=== PATIENT | female | born 1965 | race Caucasian/White ===

== ENCOUNTER → 2019-05-21 16:15 | Outpatient (CLI) | payer BC, SELFPAY ==
--- NOTE | 2019-05-21 16:19 | XR_ITS ---
PROCEDURE: XR CHEST 2V CLINICAL HISTORY: H/O TOBACCO USE COMPARISON: CXR CHEST(2 VIEWS-NOT PORTABLE) from 04/25/2016 FINDINGS: The cardiomediastinal silhouette and pulmonary vascularity are within normal limits. The lungs are clear without infiltrates, suspicious nodules, or pleural effusions. No acute bony abnormalities. IMPRESSION: No acute findings. Dictated by: Paresh Curtis MD 05/21/2019 16:37 Electronically signed by Paresh Curtis MD in [facility] 05/21/2019 16:37
== END ==
PROVIDERS: PCP Family Medicine; Visit Provider Family Medicine
DX: Z87.891 Personal history of nicotine dependence (principal)
CPT/HCPCS: 71046

== ENCOUNTER → 2019-06-02 16:16 | Outpatient (CLI) | payer BC, SELFPAY ==
--- NOTE | 2019-06-02 16:16 | MM_ITS ---
PROCEDURE: MM DIG SCREENING MAMM BI W/CAD CLINICAL INDICATION: screening xmg There is no personal or family history of breast cancer. There have been previous biopsies on each breast for benign disease. The patient is on Premarin and estrogen. COMPARISON: DMSB DIG MAMM-SCREEN VIOLETA from 03/29/2015 DMSB DIG MAMM-SCREEN VIOLETA W/CAD from 06/14/2016 DMDXUAVR DIG MAMM-DX UNI A/VW-RT W/CAD from 07/05/2016 TECHNIQUE: Standard CC and MLO images and 3D Tomosynthesis was obtained. R2 CAD reviewed. FINDINGS: There is a markedly dense and heterogenic parenchymal pattern primarily upper outer quadrants of each breast. There is a biopsy clip left breast and benign-appearing calcification left breast. There is a small to moderate size mass upper outer quadrant right breast only definitely visualized on the satinder images. The mass measures approximately 1.7 by 1.5 cm. Recommend the patient return for spot compression views and ultrasound for additional evaluation. THERE ARE NO SUSPICIOUS MICROCALCIFICATIONS. IMPRESSION: MARKEDLY DENSE PARENCHYMAL PATTERN WITH POSSIBLE NEW ASYMMETRIC MASS RIGHT BREAST BI-RAD Category: 0 Need Additional Imaging Evaluation FOLLOW-UP: IMM Immediate Follow-up Recommended (A letter has been sent to the patient regarding results of the study.) Dictated by: Dr. Cole Larsen MD 06/03/2019 13:[address] Cole Larsen MD in [place] 06/03/2019 13:31
== END ==
PROVIDERS: PCP Family Medicine; Visit Provider Nurse Practitioner Obstetrics & Gynecology
DX: Z12.31 Encounter for screening mammogram for malignant neoplasm of breast (principal)
CPT/HCPCS: 77063; 77067

== ENCOUNTER → 2019-10-23 08:36 | Outpatient (CLI) | payer BC, SELFPAY ==
--- NOTE | 2019-10-23 | CA_ITS ---
APPROVED REPORT Exam: Exercise Treadmill Technologist: Catherine Chahal, Ht: 5 ft 4 in Wt: 170 lbs BSA: 1.83 m2 HR: 85 bpm BP: 132/81 mmHg Rhythm: SINUS RHYTHM Stress Test Details Test: Dylan HR Resting HR: 88 bpm Max Heart Rate (APMHR): 168 bpm Max HR Achieved: 179 bpm Target HR (85% APMHR): 142 bpm % of APMHR: 106 Recovery HR: 131 bpm BP Resting BP: 132.0/81.0 mmHg Max BP: 171.0/71.0 mmHg Recovery BP: 171.0/71.0 mmHg ECG Resting ECG: SINUS RHYTHM Clinical Exercise duration: 08:15 min Highest Stage Achieved: Exercise capacity: 10.1 METs Stress ECG Conclusion DYLAN PROTOCOL COMPLETED. EXERCISED 08:15. METS = 10.1. MAX BP 171/71. MAX HEART RATE 179 BPM. STOPPED DUE TO SOA. RESOLVED IN RECOVERY. MAX HEART RATE 179 BPM WHICH IS 107% OF PM FOR AGE. MAX BP 171/71. METS 10.1. TEST STOPPED DUE TO SOA. NO CHEST PAIN. SHORTNESS OF AIR AT PEAK EXERCISE. OCCASIONAL PVC. LESS THAN 1.[address] DEPRESSION. GXT ONLY. GOOD EXERCISE CAPACITY. NO CP. OCCASIONAL PVC. APPROPRIATE BP RESPONSE. LESS THAN 1.[address] DEPRESSION.NEGATIVE TEST FOR ISCHEMIA AT A GOOD LEVEL OF EXERCISE. Test Summary RECOVERY 02:00 0.0 0.0 142 . . . . REST . . . . . . . Sitting REST 02:50 0.0 0.0 88 . 132/ 81 . . Stage 1 01:00 10.0 1.7 109 . 127/ 83 . . Stage 1 02:00 10.0 1.7 123 . 127/ 83 . . Stage 1 03:00 10.0 1.7 122 . 142/ 80 . . Stage 2 01:00 12.0 2.5 143 . . . . Stage 2 02:00 12.0 2.5 154 . . . . Stage 2 03:00 12.0 2.5 159 . 152/ 80 . . Stage 3 01:00 14.0 3.4 169 . . . . Stage 3 02:00 14.0 3.4 178 . . . . Stage 3 02:15 14.0 3.4 179 . . . Stop exercise at 08:15 RECOVERY 01:00 0.0 0.0 161 . . . . RECOVERY 02:00 0.0 0.0 142 . . . . RECOVERY 03:00 0.0 0.0 122 . 171/ 71 . . RECOVERY 04:00 0.0 0.0 112 . 158/ 75 . . RECOVERY 05:00 0.0 0.0 112 . 145/ 72 . . RECOVERY 05:43 0.0 0.0 111 . 142/ 72 . . Electronically signed by : Avel Kincaid, 10/23/2019 16:30:58
== END ==
PROVIDERS: PCP Family Medicine; Visit Provider Family Medicine
DX: R10.13 Epigastric pain (principal)
CPT/HCPCS: 93017

== ENCOUNTER → 2020-06-21 17:18 | Outpatient (CLI) | payer BC, SELFPAY ==
--- NOTE | 2020-06-21 17:22 | MM_ITS ---
PROCEDURE: MM DIG SCREENING MAMM BI W/CAD Digital Breast Tomosynthesis Included CLINICAL INDICATION: Screening Routine Mammogram There is no personal or family history of breast cancer. There have been previous biopsies on each breast for benign disease. The patient currently is on Premarin and estrogen. COMPARISON: MG DMSB DIG MAMM-SCREEN VIOLETA W/CAD from 06/14/2016 MG DMDXUAVR DIG MAMM-DX UNI A/VW-RT W/CAD from 07/05/2016 MG MM DIG SCREENING MAMM BI W/CAD from 06/02/2019 TECHNIQUE: Standard CC and MLO images and 3D Tomosynthesis was obtained. R2 CAD reviewed. FINDINGS: Somewhat diffuse fibroglandular densities are seen in both breast primarily upper outer quadrants. There is a biopsy clip left breast. There are few benign-appearing microcalcifications in each breast, there is a mole marker right breast. There is no suspicious lesion in either breast and no suspicious microcalcifications. IMPRESSION: Stable exam with moderate breast density and no suspicious lesions seen BI-RAD Category: 2 Benign Finding(s) FOLLOW-UP: 1YR 1 Year Follow-up (A letter has been sent to the patient regarding results of the study.) Dictated by: Dr. Cole Larsen MD 06/26/2020 19:01 Dr. Cole Larsen MD in [place] 06/26/2020 19:01
== END ==
PROVIDERS: PCP Family Medicine; Visit Provider Nurse Practitioner Obstetrics & Gynecology
DX: Z12.31 Encounter for screening mammogram for malignant neoplasm of breast (principal)
CPT/HCPCS: 77063; 77067

== ENCOUNTER → 2020-08-25 09:17 | Outpatient (CLI) | payer BC, SELFPAY ==
[2020-08-25 09:51] LABS: Basophils % 0.5 % (0.1-2.0); Eosinophils # 0.1 K/mm3 (0.0-0.4); Eosinophils % 1.6 % (0.1-12.0); Hemoglobin 14.1 g/dL (12.2-16.2); Lymphocytes # 3.2 K/mm3 (0.7-4.5); Lymphocytes % 47.1 % (10-50); Mean Corpuscular HGB Conc 32.9 g/dL (31.8-35.4); Mean Corpuscular Volume 91.2 fl (81-99); Mean Platelet Volume 8.1 fl (7.4-10.4); Monocytes # 0.4 K/mm3 (0.1-1.0); Monocytes % 5.3 % (1.7-9.3); Neutrophils # 3.1 K/mm3 (1.8-7.8); Neutrophils % 45.4 % (37.0-80.0); Platelet Count 285 K/mm3 (142-424); Red Blood Count 4.72 M/mm3 (4.20-5.40); Red Cell Distribution Width 13.1 % (11.5-17.5); White Blood Count 6.8 K/mm3 (4.8-10.8)
[2020-08-25 10:18] LABS: Alanine Aminotransferase 20 U/L (12-78); Albumin Level 4.4 g/dl (3.5-5.0); Albumin/Globulin Ratio 1.8 (1.1-1.8); Alkaline Phosphatase 78 U/L (38-126); Anion Gap 8.9 mEq/L (5-15); Aspartate Amino Transferase 31 U/L (14-36); Bilirubin,Total 0.6 mg/dl (0.2-1.3); Blood Urea Nitrogen 16 mg/dl (7-17); Calcium 9.8 mg/dl (8.4-10.2); Carbon Dioxide 30 mmol/L (22.0-30.0); Chloride 104 mmol/L (98-107); Chol/HDL Ratio 2.8 (1-3.5); Cholesterol 203 mg/dl (140-200); Estimated Glomerular Filt Rate 75 ml/min (>60); GFR (African American) 91 ML/MIN (>60); Globulin 2.5 g/dL (1.3-3.2); Glucose 109 mg/dl (74-100); HDL Cholesterol 72 mg/dl (40-60); Potassium 4.9 mmoL/L (3.5-5.1); Sodium 138 mmol/L (136-145); Total Protein,Serum 6.9 g/dl (6.3-8.2); Triglycerides 99 mg/dl (30-150); VLDL Cholesterol 20 mg/dL (0-40)
[2020-08-25 10:29] LABS: Direct LDL Cholesterol 99.52 mg/dL (100-129)
== END ==
PROVIDERS: Visit Provider Nurse Practitioner Obstetrics & Gynecology
DX: Z01.419 Encounter for gynecological examination (general) (routine) without abnormal findings (principal)
CPT/HCPCS: 36415; 80053; 80061; 85025

== ENCOUNTER → 2021-02-21 16:15 | Outpatient (POV) | payer BC, SELFPAY | PROVIDERS: Visit Provider Dermatology | DX: Z00.00 Encounter for general adult medical examination without abnormal findings (principal) ==

== ENCOUNTER → 2021-03-21 15:12 | Outpatient (CLI) | payer BC, SELFPAY ==
--- NOTE | 2021-03-21 15:17 | CA_ITS ---
APPROVED REPORT EXAM: Comprehensive 2D, Doppler, and color-flow Echocardiogram Clergy Member: Mandi Martinez, RCS, RVS Ht: 5 ft 4 in Wt: 177lbs BSA: 1.86 BP: 128/90 mmHg Indications: S/P covid, Tachypalpitaions 2D Dimensions Aortic Root 2.27 cm LA Volume 22.50 mL Left Atrium 1.94 cm LA Volume Index 12.80 mL/m2 (M/F) 16-34 LVOT 1.55 cm (M/F) 1.5-2.5 M-Mode Dimensions RVDd 2.20 cm (0.9-2.6) LA Diam 3.44 cm (1.9-4.0) LVDd 3.33 cm (3.5-5.7) Ao Diam 2.73 cm (2.0-3.7) LVDs 2.39 cm (3.5-5.7) IVSd 0.78 cm (0.6-1.1) PWd 0.86 cm (0.6-1.1) EF (Teich) 55.70% EPSs 0.86 cm FS 28.20% EDV (Teich) 45.10 mL TAPSE 2.40 (<1.7) ESV (Teich) 20.00 mL LV Diastology E Decel Time 240.00 (160-240 msec) E/A Ratio 0.87 MED E' 9.00 (< 7 cm/sec) MED A' 13.80 cm/s E'/MED E' Ratio 8.78 (>14) LAT E' 10.00 (<10 cm/sec) LAT A' 10.50 cm/s E/LAT E' Ratio 7.90 (>14) Aortic Valve LVOT Max 130.00 (70-110 cm/s) LVOT VTI 27.09 cm AoV Peak Jalen. 142.00 (50-130 cm/s) AO Peak GR. 8.10 mmHg AO Mean GR. 4.10 (<5 mmHg) AO VTI 28.87 (18-25 cm) RONNIE (VTI) 1.77 (2.5-4.5 cm2) Mitral Valve MV A Velocity 91.00 (40-130 cm/s) E/A Ratio 0.87 MV Decel. Time 240.00 (160-240 ms) Pulmonary Valve PV Peak Velocity 84.00 (50-150 cm/s) Tricuspid Valve TR P. Velocity 209.00 cm/s RAP Estimate 10.00 mmHg RVSP 27.40 mmHg Left Ventricle Left atrium normal size, left ventricle is normal size, there is no concentric left ventricular hypertrophy, visually estimated ejection fraction 55% with no regional wall motion abnormality, diastolic parameters are within normal range. Right Ventricle Right atrium and right ventricle are normal size and contractility. Aortic Valve Aortic valve is grossly normal, there is no aortic stenosis or aortic insufficiency. Mitral Valve Mitral valve is grossly normal, there is trace mitral regurgitation. Tricuspid Valve Tricuspid valve grossly normal, there is trace tricuspid regurgitation. Tricuspid rotation jet velocity is inadequate for calculation of the right ventricular systolic pressure. Pulmonic Valve Pulmonic valve is poorly visualized. Great Vessels Aortic root is normal size. Inferior vena cava normal size with normal inspiratory collapse. Pericardium No significant pericardial effusion noted. Conclusion 1. Normal left ventricular size, preserved left ventricular systolic function visually estimated ejection fraction 55% with no regional wall motion abnormality, diastolic parameters are within normal range. 2. Trace mitral and tricuspid regurgitation. 3. No significant pericardial effusion noted. 4. Inferior vena cava normal size with normal inspiratory collapse. Electronically signed by : Eulalio Briones MD 03/21/2021 19:03:28
== END ==
PROVIDERS: PCP Family Medicine; Visit Provider Family Medicine
DX: R00.0 Tachycardia, unspecified (principal)
CPT/HCPCS: 93225; 93226; 93306

== ENCOUNTER → 2022-03-15 16:18 | Outpatient (CLI) | payer BC, SELFPAY ==
--- NOTE | 2022-03-15 16:22 | MM_ITS ---
PROCEDURE INFORMATION: Exam: MG Bilateral Screening 3D Mammography Exam date and time: 03/15/2022 4:31 PM Age: 56 years old Clinical indication: Screening examination TECHNIQUE: Imaging protocol: Bilateral Screening tomosynthesis and 2D mammography including computer-aided detection (CAD) when performed. COMPARISON: 1. MG MM DIG SCREENING MAMM BI W/CAD 06/21/2020 5:19 PM 2. MG MM DIG SCREENING MAMM BI W/CAD 06/02/2019 4:28 PM FINDINGS: MAMMOGRAPHY: Breast composition: The breasts are extremely dense, which lowers the sensitivity of mammography. Mass: 2.2 cm mass in the middle third of the right upper outer quadrant is likely on the basis of underlying cystic change Architectural distortion: None. Calcifications: No suspicious calcifications. Asymmetric density: None. Skin thickening: None. Axillary adenopathy: None. IMPRESSION: Patient to be recalled for right breast ultrasound for further evaluation of a right breast mass. ASSESSMENT: BI-RADS Category 0: Incomplete- Need Additional Imaging Evaluation and/or Prior Mammograms for Comparison
== END ==
PROVIDERS: PCP Family Medicine; Visit Provider Nurse Practitioner Obstetrics & Gynecology
DX: Z12.31 Encounter for screening mammogram for malignant neoplasm of breast (principal); I25.10 Atherosclerotic heart disease of native coronary artery without angina pectoris
CPT/HCPCS: 36415; 77063; 77067; 84132

== ENCOUNTER → 2022-04-18 15:19 | Outpatient (CLI) | payer BC, SELFPAY ==
--- NOTE | 2022-04-18 15:19 | US_ITS ---
PROCEDURE INFORMATION: Exam: US Right Breast, Complete Exam date and time: 04/18/2022 3:30 PM Age: 56 years old patient Clinical indication: Patient recalled for further evaluation of a right breast mass TECHNIQUE: Imaging protocol: Right Ultrasound of the breast with image documentation. All quadrants and retroareolar regions evaluated. Exam focused on the search and evaluation for abscess. Exam is an emergent request and a non-BIRADS study. COMPARISON: BR US BREAST-RT COMPLETE W/AXILLA 07/05/2016 4:00 PM FINDINGS: Breast: Sonographic images of the right breast including the retroareolar region, all 4 quadrants and the axilla do not demonstrate any solid masses. Fairly widespread cystic changes present including a 2.1 cm cyst in the 10 o'clock axis 5 cm from the nipple corresponding to the mass on mammography. No architectural distortion or acoustical shadowing. No skin thickening or axillary adenopathy. IMPRESSION: Mass on screening mammography corresponds to underlying cystic change sonographically. There is no mammographic evidence of malignancy.Annual bilateral mammographic screening is recommended unless otherwise clinically indicated. ASSESSMENT: BI-RADS Category 2: Benign
== END ==
LOC: RAD 15:19
PROVIDERS: PCP Family Medicine; Visit Provider Nurse Practitioner Obstetrics & Gynecology
DX: N60.01 Solitary cyst of right breast (principal)
CPT/HCPCS: 76641

== ENCOUNTER → 2022-05-07 13:14 | Outpatient (CLI) | payer BC, SELFPAY ==
[2022-05-07 14:08] LABS: Basophils # 0.1 K/mm3 (0-0.2); Basophils % 1.1 % (0.1-2.0); Eosinophils # 0.2 K/mm3 (0.0-0.4); Eosinophils % 2.2 % (0.1-12.0); Hematocrit 43.4 % (37.0-47.0); Hemoglobin 14.2 g/dL (12.2-16.2); Lymphocytes # 2.8 K/mm3 (0.7-4.5); Lymphocytes % 38.6 % (10-50); Mean Corpuscular HGB Conc 32.7 g/dL (31.8-35.4); Mean Corpuscular Volume 91.6 fl (81-99); Mean Platelet Volume 8.9 fl (7.4-10.4); Monocytes # 0.4 K/mm3 (0.1-1.0); Monocytes % 5.1 % (1.7-9.3); Neutrophils # 3.9 K/mm3 (1.8-7.8); Platelet Count 275 K/mm3 (142-424); Red Blood Count 4.74 M/mm3 (4.20-5.40); Red Cell Distribution Width 13.3 % (11.5-17.5); White Blood Count 7.3 K/mm3 (4.8-10.8)
[2022-05-07 14:56] LABS: Alanine Aminotransferase 31 U/L (12-78); Albumin Level 4.1 g/dl (3.5-5.0); Alkaline Phosphatase 92 U/L (38-126); Anion Gap 10.9 mEq/L (5-15); Aspartate Amino Transferase 45 U/L (14-36); Bilirubin,Direct 0.2 mg/dl (0.0-0.4); Bilirubin,Indirect 0.1 mg/dL (0.0-0.9); Bilirubin,Total 0.3 mg/dl (0.2-1.3); Bilirubin,Unconjugated 0.1 mg/dL (0.0-1.1); Blood Urea Nitrogen 14 mg/dl (7-17); Carbon Dioxide 31 mmol/L (22.0-30.0); Chloride 101 mmol/L (98-107); Cholesterol 166 mg/dl (140-200); Estimated Glomerular Filt Rate 87 ml/min (>60); GFR (African American) 105 ML/MIN (>60); Glucose 139 mg/dl (74-100); HDL Cholesterol 41 mg/dl (40-60); Magnesium 1.7 mg/dl (1.6-2.3); Potassium 3.9 mmoL/L (3.5-5.1); Sodium 139 mmol/L (136-145); Total Protein,Serum 6.4 g/dl (6.3-8.2); Triglycerides 209 mg/dl (30-150); VLDL Cholesterol 42 mg/dL (0-40)
[2022-05-07 15:06] LABS: Direct LDL Cholesterol 94.95 mg/dL (100-129)
[2022-05-07 15:11] LABS: Free T4 (Free Thyroxine) 0.74 ng/dl (0.78-2.19)
[2022-05-07 15:26] LABS: Thyroid Stimulating Hormone 2.16 uIU/mL (0.465-4.68)
== END ==
PROVIDERS: PCP Family Medicine; Visit Provider Internal Medicine
DX: R00.2 Palpitations (principal); R55 Syncope and collapse; R94.31 Abnormal electrocardiogram [ECG] [EKG]
CPT/HCPCS: 36415; 80048; 80061; 80076; 83735; 84439; 84443; 85025

== ENCOUNTER → 2022-05-14 12:50 | Outpatient (CLI) | payer BC, SELFPAY ==
--- NOTE | 2022-05-14 12:53 | CA_ITS ---
APPROVED REPORT EXAM: Comprehensive 2D, Doppler, and color-flow Echocardiogram Chip Mixing Machine Operator: Mandi Martinez, RCS, RVS Ht: 5 ft 4 in Wt: 199lbs BSA: 1.95 BP: 145/87 mmHg Indications: Palpitations, Abn EKG, Ex-smoker 2D Dimensions IVSd 0.79 cm LVEF (Visual) 52.10 % PWd 1.09 cm LA Volume 29.90 mL LVDd 3.67 cm LA Volume Index [id number] mL/m2 (M/F) 16-34 LVDs 2.71 cm Aortic Root 2.49 cm Left Atrium 2.60 cm LVOT 1.88 cm (M/F) 1.5-2.5 M-Mode Dimensions LA Diam 3.37 cm (1.9-4.0) Ao Diam 2.91 cm (2.0-3.7) EPSs 0.52 cm TAPSE 1.57 (<1.7) LV Diastology E Decel Time 133.00 (160-240 msec) E/A Ratio 1.08 MED E' 6.50 (< 7 cm/sec) MED A' 10.60 cm/s E'/MED E' Ratio 10.29 (>14) LAT E' 10.00 (<10 cm/sec) LAT A' 12.20 cm/s E/LAT E' Ratio 6.69 (>14) Aortic Valve LVOT Max 110.00 (70-110 cm/s) LVOT VTI 21.46 cm AoV Peak Jalen. 142.00 (50-130 cm/s) AO Peak GR. 8.10 mmHg AO Mean GR. 3.80 (<5 mmHg) AO VTI 22.66 (18-25 cm) RONNIE (VTI) 2.63 (2.5-4.5 cm2) Mitral Valve MV A Velocity 62.00 (40-130 cm/s) E/A Ratio 1.08 MV Decel. Time 133.00 (160-240 ms) Pulmonary Valve PV Peak Velocity 73.00 (50-150 cm/s) Left Ventricle Left atrium is normal size, left ventricle is normal size, estimated ejection fraction 55% with no regional wall motion abnormality, diastolic parameters are within normal range. Right Ventricle Right atrium and right ventricle are normal size and contractility. Aortic Valve Aortic valve is grossly normal there is no aortic stenosis or aortic insufficiency. Mitral Valve Mitral valve grossly normal, there is trace mitral regurgitation. Tricuspid Valve Tricuspid grossly normal, there is trace tricuspid regurgitation, tricuspid regurgitation jet velocity is inadequate for calculation of the right ventricular systolic pressure. Pulmonic Valve Pulmonic valve is poorly visualized. Great Vessels Aortic root is normal size. Inferior vena cava is poorly visualized. Pericardium No significant pericardial effusion noted. Conclusion 1. Normal left ventricular size preserved left ventricular systolic function, estimated ejection fraction 55% with no regional wall motion abnormality, diastolic parameters are within normal range. 2. Trace mitral and tricuspid regurgitation. 3. No significant pericardial effusion noted. 4. Inferior vena cava is poorly visualized. Electronically signed by : Eulalio Briones MD 05/15/2022 05:52:24
== END ==
LOC: RT 12:53
PROVIDERS: PCP Family Medicine; Visit Provider Internal Medicine
DX: R00.2 Palpitations (principal); R55 Syncope and collapse; R94.31 Abnormal electrocardiogram [ECG] [EKG]
CPT/HCPCS: 93306

== ENCOUNTER → 2022-12-03 15:10 | Outpatient (CLI) | payer BC, SELFPAY ==
--- NOTE | 2022-12-03 15:13 | CT_ITS ---
FINAL REPORT CLINICAL HISTORY: H/O TOBACCO USE FORMER SMOKER, QUIT 7 YRS AGO, SMOKED 1 1/2 PKS PER DAY X 35 YRS COMPARISON: None FINDINGS: CT CHEST LOW DOSE SCREENING HISTORY: Screening exam for lung cancer. Former smoker, 50 to pack year smoking history DOSE: CTDIvol: 2.9 mGy, DLP: 106.29 mGy*cm COMPARISON: None . TECHNIQUE: Axial CT without IV contrast administration using low dose protocol FINDINGS: There is biapical pleural and parenchymal scarring present.. No pulmonary lesions are seen suspicious for neoplasm. No pleural or pericardial effusion is seen . No adenopathy or mass lesion is present . Diffuse mild fatty infiltration of the liver is present. IMPRESSION: Mild biapical pleural and parenchymal scarring. LUNG RADS CATEGORY 1 RECOMMENDATION: 12 month LDCT follow up Reviewed, Interpreted and Dictated by Dominick Joy MD Transcribed by Inna Bowden Authenticated and [facility]
== END ==
PROVIDERS: PCP Family Medicine; Visit Provider Family Medicine
DX: Z87.891 Personal history of nicotine dependence (principal); Z12.2 Encounter for screening for malignant neoplasm of respiratory organs
CPT/HCPCS: 71271

== ENCOUNTER 2024-01-20 14:42 | Outpatient (CLI) | payer BC, SELFPAY ==
--- NOTE | 2024-01-20 14:47 | CT_ITS ---
FINAL REPORT TECHNIQUE: Axial CT images of the chest were obtained without contrast. Low-dose protocol was utilized. This study was performed with techniques to keep radiation doses as low as reasonably achievable (ALARA). Individualized dose reduction techniques using automated exposure control or adjustment of mA and/or kV according to the patient's size were employed. CLINICAL HISTORY: SCREENING, QUIT SMOKING 7 YEARS AGO, SMOKED 1.5-2PPD WHEN SMOKING, SMOKED FOR 30 YEARS COMPARISON: 12/03/2022 FINDINGS: CT CHEST WITHOUT, LOW DOSE SCREENING CT Di Vol: 2.90 mGy DLP: 103.42 mGy*cm There is no axillary, mediastinal, or hilar adenopathy. The heart size is normal. There is no pleural or pericardial effusion. There is mild emphysema and mild scarring. The lung windows show no suspicious mass or nodule. Limited images of the upper abdomen demonstrate fatty infiltration of the liver. IMPRESSION: No suspicious mass or nodule. LR Category 1: 12 month follow-up low-dose chest CT is recommended per Fleischner criteria. Reviewed, Interpreted and Dictated by Rojelio Schultz III, MD Transcribed by Ramona Archer Authenticated and [facility]
== END 2024-01-20 23:59 | disposition home or self-care (01) ==
LOC: RAD 14:43
PROVIDERS: PCP Nurse Practitioner Family; Visit Provider Nurse Practitioner Family
DX: Z87.891 Personal history of nicotine dependence (principal)
CPT/HCPCS: 71271

== ENCOUNTER 2024-08-31 06:56 | Outpatient (CLI) | payer BC, SELFPAY ==
[2024-08-31 07:24] LABS: Basophils % 0.4 % (0.1-2.0); Eosinophils # 0.2 Kmm3 (0.0-0.4); Eosinophils % 2.3 % (0.1-12.0); Hematocrit 42.4 % (37.0-47.0); Hemoglobin 14.3 g/dL (12.2-16.2); Immature Granulocytes # 0.02 10^3uL; Immature Granulocytes % 0.2 %; Lymphocytes % 32.6 % (10-50); Mean Corpuscular HGB Conc 33.7 g/dL (31.8-35.4); Mean Corpuscular Hemoglobin 30.3 pg (27.0-31.2); Mean Corpuscular Volume 89.8 fl (81-99); Mean Platelet Volume 10.6 fl (7.4-10.4); Monocytes # 0.7 K/mm3 (0.1-1.0); Monocytes % 7.8 % (1.7-9.3); Neutrophils # 5.3 K/mm3 (1.8-7.8); Neutrophils % 56.7 % (37.0-80.0); Nucleated Red Blood Cells # 0 10^3/uL; Nucleated Red Blood Cells % 0 %; Platelet Count 287 K/mm3 (142-424); Red Blood Count 4.72 M/mm3 (4.20-5.40); Red Cell Distribution Width 12.4 % (11.5-17.5); Red Cell Distribution Width-SD 40.8 fL; White Blood Count 9.3 K/mm3 (4.8-10.8)
[2024-08-31 07:43] LABS: Alanine Aminotransferase 18 U/L (12-78); Albumin/Globulin Ratio 1.6 (1.1-1.8); Alkaline Phosphatase 67 U/L (38-126); Anion Gap 9.5 mEq/L (5-15); Aspartate Amino Transferase 29 U/L (14-36); Bilirubin,Total 0.4 mg/dl (0.2-1.3); Blood Urea Nitrogen 17 mg/dl (7-17); Calcium 9.4 mg/dl (8.4-10.2); Carbon Dioxide 30 mmol/L (22.0-30.0); Chloride 102 mmol/L (98-107); Chol/HDL Ratio 2.9 (1-3.5); Cholesterol 141 mg/dl (140-200); Estimated Glomerular Filt Rate 86 ml/min (>60); GFR (African American) 104 ML/MIN (>60); Globulin 2.5 g/dL (1.3-3.2); Glucose 110 mg/dl (74-100); HDL Cholesterol 48 mg/dl (40-60); Potassium 4.5 mmoL/L (3.5-5.1); Sodium 137 mmol/L (136-145); Total Protein,Serum 6.5 g/dl (6.3-8.2); Triglycerides 170 mg/dl (30-150); VLDL Cholesterol 34 mg/dL (0-40)
[2024-08-31 07:54] LABS: Direct LDL Cholesterol 63.35 mg/dL (100-129)
[2024-08-31 08:48] LABS: 25-OH Vitamin D, Total 69.6 ng/mL (30-100)
== END 2024-08-31 23:59 | disposition home or self-care (01) ==
LOC: LAB 06:57
PROVIDERS: PCP Nurse Practitioner Family; Visit Provider Nurse Practitioner Obstetrics & Gynecology
DX: Z01.419 Encounter for gynecological examination (general) (routine) without abnormal findings (principal); Z79.890 Hormone replacement therapy
CPT/HCPCS: 36415; 80053; 80061; 82306; 85025

== ENCOUNTER 2024-09-03 15:25 | Outpatient (CLI) | payer BC, SELFPAY ==
--- NOTE | 2024-09-03 15:30 | MM_ITS ---
PROCEDURE INFORMATION: Exam: MG Bilateral Screening 3D Mammography Exam date and time: 09/03/2024 3:31 PM Age: 58 years old Clinical indication: Screening exam TECHNIQUE: Imaging protocol: Bilateral Screening tomosynthesis and 2D mammography including computer-aided detection (CAD) when performed. COMPARISON: 1. MG MM DIG SCREENING MAMM BI W/CAD 03/15/2022 4:31 PM 2. MG MM DIG SCREENING MAMM BI W/CAD 06/21/2020 5:19 PM FINDINGS: MAMMOGRAPHY: Breast composition: The breasts are extremely dense, which lowers the sensitivity of mammography. Mass: No suspicious masses. Architectural distortion: None. Calcifications: No suspicious calcifications. Asymmetric density: None. Skin thickening: None. Axillary adenopathy: None. IMPRESSION: No mammographic evidence of malignancy. Annual screening is recommended unless otherwise clinically indicated. ASSESSMENT: BI-RADS Category 1: Negative.
== END 2024-09-03 23:59 | disposition home or self-care (01) ==
LOC: RAD 15:26
PROVIDERS: PCP Nurse Practitioner Family; Visit Provider Nurse Practitioner Obstetrics & Gynecology
DX: Z12.31 Encounter for screening mammogram for malignant neoplasm of breast (principal); R92.343 Mammographic extreme density, bilateral breasts
CPT/HCPCS: 77063; 77067